=== PATIENT | male | born 1970 | race African-American/Black ===

== ENCOUNTER 2021-03-11 16:08 | Emergency (ER) | payer BC, OTHER ==
[~2021-03-11] VITALS: Ht 175.3 cm; Wt 83.9 kg
[2021-03-11 16:48] LABS: BASOPHILS 1.2 % (0.0-2.0); EOSINOPHILS 3.3 % (0.0-3.0); HEMATOCRIT 38.8 % (42.0-52.0); HEMOGLOBIN 12.6 gm/dL (14.0-18.0); LYMPHOCYTES 26.8 % (24.0-44.0); MCH 25.6 pg (26.0-34.0); MCHC 32.4 g/dL (28.0-37.0); MCV 78.9 fL (80.0-100.0); MONOCYTES 11.1 % (1.0-8.0); PLATELET COUNT 255 thou/uL (150-400); POLYS 57.6 % (36.0-66.0); RBC 4.92 mil/uL (4.50-6.00); RDW 18.4 % (10.5-14.5)
[2021-03-11 16:53] LABS: ANION GAP 10 mmol/L (7-16); BUN 15 mg/dL (7-18); CALCIUM 9.1 mg/dL (8.5-10.1); CHLORIDE 103 mmol/L (98-107); CO2 25 mmol/L (21-32); CREATININE 1.4 mg/dL (0.7-1.3); GLUCOSE 137 mg/dL (74-106); POTASSIUM 3.9 mmol/L (3.5-5.1); SODIUM 138 mmol/L (136-145)
[2021-03-11 17:01] LABS: TROPONIN-I <0.06 ng/mL (<0.06)
[2021-03-11 18:57] LABS: URINE BILIRUBIN NEGATIVE (Negative); URINE BLOOD NEGATIVE (Negative); URINE CLARITY CLEAR; URINE COLOR YELLOW; URINE GLUCOSE-RANDOM* NEGATIVE (Negative); URINE KETONES NEGATIVE (Negative); URINE LEUKOCYTES-REFLEX NEGATIVE (Negative); URINE NITRITE-REFLEX NEGATIVE (Negative); URINE PROTEIN (DIPSTICK) NEGATIVE (Negative); URINE UROBILINOGEN 0.2 E.U./dl (0.2-1.0)
[2021-03-11] MEDS ORDERED: SENNA-DOCUSATE1 EAC1 PO (19:17)
[2021-03-11] MEDS ORDERED: NORCO5 PO ×2 (19:17→19:20)
[2021-03-11] MEDS ORDERED: NAPROSYN500 MG PO (19:17)
[2021-03-11] MEDS ORDERED: FLEXERIL PO (19:17)
[2021-03-11] MEDS ORDERED: DESYREL150 MG PO (19:21)
[2021-03-11 19:57] VITALS: BP 119/74
--- NOTE | 2021-03-12 08:11 | EKG ---
[place] [address] [facility] [place] [address] ELECTROCARDIOGRAM REPORT Name: HARMONY RIZZO [id number] Admission: 03/11/21 Attend Phys: Discharge: 03/11/21 Date of : 66 Report #: [id number] [facility] ED Test Date: 2021-03-11 Test Time: 16:40:04 Pat Name: HARMONY RIZZO Department: Room: Gender: Extrusion Press Operator: HARPAL CAMPBELL : 1970 Requested By: Harjit Heard Order Number: [id number] MD: Lukasz Lennon Measurements Intervals [place] Rate: 85 P: 38 IL: 166 QRS: 2 QRSD: 82 T: -8 QT: 368 QTc: 438 Interpretive Statements Sinus rhythm Left ventricular hypertrophy Borderline T abnormalities, inferior leads No previous ECG available for comparison Electronically Signed On 03-12-2021 8:11:20 CDT by Lukasz Lennon [email or web address] <ELECTRONICALLY SIGNED> By: Lukasz Lennon MD 03/12/21 0811 1640 MD MAU Hwang
--- NOTE | 2021-03-12 08:11 | EKG ---
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 : 1970 Requested By: Harjit Heard Order Number: [id number] MD: Lukasz Lennon Measurements Intervals [place] Rate: 85 P: 43 MD: 168 QRS: 3 QRSD: 114 T: -7 QT: 370 QTc: 440 Interpretive Statements Sinus rhythm Left ventricular hypertrophy Borderline T abnormalities, inferior leads Compared to ECG 03/11/2021 16:40:04 No significant changes Electronically Signed On 03-12-2021 8:11:29 CDT by Lukasz Lennon [email or web address] <ELECTRONICALLY SIGNED> By: Lukasz Lennon MD 03/12/21 0811 [facility] Lukasz Lennon MD /MAX
== END 2021-03-11 20:11 | disposition home or self-care (01) ==
LOC: ER 16:08
PROVIDERS: Emergency Medicine
DX: M25.562 Pain in left knee (principal); R55 Syncope and collapse; W18.30XA Fall on same level, unspecified, initial encounter; Y93.89 Activity, other specified; Y92.69 Other specified industrial and construction area as the place of occurrence of the external cause; Y99.9 Unspecified external cause status